=== PATIENT | male | born 1970 | race Caucasian/White ===

== ENCOUNTER → 2018-03-12 12:55 | Outpatient (CLI) | payer OTHER, SELFPAY ==
--- NOTE | 2018-03-12 12:58 | DI.RAD.S_ITS ---
PROCEDURE: XR ANKLE RT MIN 3V INDICATIONS: Right foot pain TECHNIQUE: 3 views of the ankle were acquired. COMPARISON: None. FINDINGS: Bones: No fractures or dislocations. Ankle mortise is normally aligned. No suspicious bony lesions. Calcaneal enthesophytes. Soft tissues: No tibiotalar joint effusion. Achilles tendon appears normal. IMPRESSION: Posterior plantar calcaneal enthesophytes. Dictated by: Keyon Terry [facility] Interpreted: Shanelle Pryor MD on 03/12/2018 at 13:13 Approved by: Shanelle Pryor M.D. on 03/12/2018 at 16:30
--- NOTE | 2018-03-12 12:58 | DI.RAD.S_ITS ---
PROCEDURE: XR FOOT RT MIN 3V INDICATIONS: Right foot pain TECHNIQUE: 3 views of the foot were acquired. COMPARISON: [facility], CR, XR ANKLE RT MIN 3V, 03/12/2018, 12:37. FINDINGS: Bones: No fractures or dislocations. No suspicious bony lesions. Calcaneal enthesophytes. Soft tissues: No tibiotalar joint effusion. Achilles tendon appears normal. IMPRESSION: Plantar and posterior calcaneal enthesophytes. Dictated by: Keyon Terry [facility] Interpreted: Shanelle Pryor MD on 03/12/2018 at 13:14 Approved by: Shanelle Pryor M.D. on 03/12/2018 at 16:27
== END ==
PROVIDERS: Visit Provider Family Medicine
DX: M79.671 Pain in right foot (principal)
CPT/HCPCS: 73610; 73630

== ENCOUNTER 2018-03-13 16:11 | Emergency (ER) | payer OTHER, SELFPAY ==
[2018-03-13 16:15] VITALS: BP 164/91; PULSE 88; RESP 16; TEMP 36.2; O2SAT 100; BMI 42.3
--- NOTE | 2018-03-13 16:51 | ED.LOWEXIN ---
HPI - Extremity Injury (Lower) General Chief Complaint: Extremity Injury, Lower Stated Complaint: SWELLING AND PAIN Time Seen by Provider: 03/13/18 16:18 Source: patient Mode of arrival: ambulatory Limitations: no limitations History of Present Illness HPI Narrative: Otherwise healthy 47-year-old male here for evaluation of right ankle pain. Patient states on of this week he got into his truck drove to work and when he got out he started having pain in the back of his right ankle. He states that since then the pain has moved to the front. No specific trauma. He states that he has pain with standing. Took a Motrin this morning with only minimal help. No swelling. No redness. No fevers. No prior injuries. Saw his primary doctor yesterday and obtained foot and ankle x-rays and was told that there was no fracture. Did use a walking boot with some improvement because of the compression. Related Data Home Medications Medication Instructions Recorded Confirmed aspirin 81 mg tablet,delayed 81 mg PO DAILY 02/02/18 03/12/18 release cholecalciferol (vitamin D3) 2,000 2,000 unit PO DAILY 02/02/18 03/12/18 unit capsule Previous Rx's Medication Instructions Recorded fenofibrate 1 tab PO QDAY #90 tab 11/13/17 hydrochlorothiazide 1 tab PO QDAY #90 tab 11/13/17 lisinopril 1 tab PO QDAY #90 tab 11/13/17 omeprazole 1 cap PO QDAY #90 cap 11/13/17 hydrocodone-acetaminophen [[place]] 1 tab PO Q4-6H PRN #7 tab 03/13/18 Allergies Allergy/AdvReac Type Severity Reaction Status Date / Time No Known Drug Allergies Allergy Verified 03/13/18 16:38 Review of Systems Constitutional Denies fatigue, Denies fever(s) and Denies headache(s) ENT Ears, Nose, Mouth, and Throat: Denies headache(s) Musculoskeletal Comments: Right ankle pain with walking Integumentary/Breasts Comments: No swelling redness right ankle Neurologic Denies headache(s) Comments: No numbness or tingling right lower extremity Endocrine Denies fatigue Hematologic/Lymphatic Denies easy bleeding and Denies easy bruising PFSH Family History Brother Age: 49 Skin cancer Mother Hypertension Social History Smoking Status: Former smoker Exam Initial Vital Signs Initial Vital Signs: Vital Signs Temperature 97.1 F L 03/13/18 16:15 Pulse Rate 88 03/13/18 16:15 Respiratory Rate 16 03/13/18 16:15 Blood Pressure 164/91 H 03/13/18 16:15 Pulse Oximetry 100 03/13/18 16:15 HENMT Head: normal to inspection, normocephalic and atraumatic Cardio Pulses: dorsalis pedis present on the right Skin Lesions: no lesions Rashes: no rashes Wounds: no wounds Neuro Other: Sensation intact to light touch right lower extremity Extrem Other: No tenderness to palpation along the Achilles No tenderness to palpation on medial lateral malleolus Patient is tender to palpation over the anterior tibia on the lateral aspect over the ATFL. No tenderness to palpation over the tibialis anterior tendon No tenderness palpation on the plantar aspect of the foot No tenderness palpation along the base of the 5th metatarsal. Course Vital Signs - 8 hr 03/13/18 16:15 Temperature 97.1 F L Pulse Rate 88 Respiratory Rate 16 Blood Pressure 164/91 H Pulse Oximetry 100 MDM - Extremity Injury (Lower) MDM Narrative Medical decision making narrative: I did review the patient's ankle ft and ankle x-rays from yesterday and reviewed the results in the were no fractures. There is no signs of infections. I do have a high suspicion that he has been somewhat disrupted the ligaments on the anterior portion of his talus tibial joint. Patient does have a walking boot at home. He does have a scooter and he also has crutches that he can use. We did discuss care. Did discuss follow-up. His primary doctor has put in a consult to see ft and ankle already. He was given return precautions. He expressed understanding and agreement with plan Discharge Plan Departure Patient Disposition: Home, Self-Care Clinical Impression: Pain in right ankle Instructions: How To Perform RICE (Rest, Ice, Compress, Elevate) Activity Restrictions/Additional Instructions: Recommend that you take the medication like we discussed. Make sure you follow through with the consult to the orthopedic group that was placed by the provider yesterday. Return to the emergency department for any new or worsening symptoms Prescriptions: New hydrocodone-acetaminophen [[place]] 5-325 mg tablet 1 tab PO Q4-6H PRN (Reason: pain) Qty: 7 RF: 0 No Action cholecalciferol (vitamin D3) 2,000 unit capsule 2,000 unit PO DAILY RF: 0 aspirin [Adult Low Dose Aspirin] 81 mg tablet,delayed release (DR/EC) 81 mg PO DAILY RF: 0 lisinopril 20 MG tablet 1 tab PO QDAY Qty: 90 RF: 3 omeprazole 20 MG capsule,delayed release(DR/EC) 1 cap PO QDAY Qty: 90 RF: 3 hydrochlorothiazide 25 MG tablet 1 tab PO QDAY Qty: 90 RF: 3 fenofibrate 54 MG tablet 1 tab PO QDAY Qty: 90 RF: 3
[2018-03-13 17:09] VITALS: BP 158/86; PULSE 86; RESP 18; O2SAT 96
== END 2018-03-13 17:11 | disposition home or self-care (01) ==
PROVIDERS: Emergency Provider Emergency Medicine
DX: M25.571 Pain in right ankle and joints of right foot (principal)
CPT/HCPCS: 99282

== ENCOUNTER → 2018-04-17 08:19 | Outpatient (CLI) | payer OTHER, SELFPAY ==
[2018-04-17 09:11] LABS: Add Manual Diff / Slide Review NO; Basophils Percent Auto 0.9 % (0-2); Eosinophils Percent Auto 3.5 % (2-4); Hemoglobin 16.2 g/dL (13.5-17.5); Mean Corpuscular HGB Conc 34.4 % (30-36); Mean Corpuscular Hemoglobin 30.5 PG (26-34); Mean Corpuscular Volume 88.5 fL (80-100); Monocytes Percent Auto 7.7 % (3-14); Neutrophils Absolute Auto 4500 /uL (3000-5900); Neutrophils Percent Auto 62.9 % (50-75); Platelet Count 161 X10^3/uL (150-400); Red Blood Cell Count 5.31 X10^6/uL (4.5-5.9); Red Cell Distribution Width 14.1 % (11.6-14.8); White Blood Cell Count 7.1 X10^3/uL (4.5-11.0)
[2018-04-17 09:27] LABS: Alanine Aminotransferase 59 IU/L (21-72); Albumin 4.3 g/dL (3.5-5.0); Albumin Globulin Ratio 1.8 (1.0-2.8); Alkaline Phosphatase 43 U/L (38-126); Aspartate Aminotransferase 39 IU/L (17-59); BUN Creatinine Ratio 17.8 (6-22); Bilirubin Total 0.7 mg/dL (0.2-1.3); Blood Urea Nitrogen 16 mg/dL (9-20); Calcium 9.3 mg/dL (8.4-10.2); Carbon Dioxide 32 mmol/L (22-32); Chloride 96 mmol/L (98-107); Cholesterol 194 mg/dL (140-199); Estimated Glomerular Filt Rate > 60.0 mL/min (>60); Globulin 2.4 g/dL (1.7-4.1); Glucose 113 mg/dL (70-100); HDL Cholesterol 33 mg/dL (40-60); HEMOLYSIS < 15 (0-50); Potassium 4.6 mmol/L (3.4-5.1); Sodium 137 mmol/L (137-145); Total Protein 6.7 g/dL (6.3-8.2); Triglycerides 431 mg/dL (35-150)
[2018-04-21 13:13] LABS: Testosterone Free 73.5 pg/mL (35.0-155.0); Testosterone Total 365 ng/dL (250-1100)
== END ==
PROVIDERS: PCP Family Medicine; Visit Provider Family Medicine
DX: I10 Essential (primary) hypertension (principal); E78.1 Pure hyperglyceridemia; E29.1 Testicular hypofunction; E78.00 Pure hypercholesterolemia, unspecified
CPT/HCPCS: 36415; 80053; 80061; 84402; 84403; 85025

== ENCOUNTER → 2018-09-17 16:29 | Outpatient (CLI) | payer OTHER, SELFPAY | PROVIDERS: Visit Provider Family Medicine | DX: E29.1 Testicular hypofunction (principal) | CPT/HCPCS: 36415; 84403 ==

== ENCOUNTER 2019-02-27 11:42 | Emergency (ER) | payer OTHER, SELFPAY ==
[2019-02-27 11:49] VITALS: BP 165/94; PULSE 90; RESP 18; TEMP 36.4; O2SAT 99
--- NOTE | 2019-02-27 12:47 | ED.LOWEXIN ---
HPI - Extremity Injury (Lower) <Antoinette Jensen PA-C - Last Filed: 02/27/19 20:36> General Chief Complaint: Extremity Injury, Lower Stated Complaint: Thinks left hamstring is torn Time Seen by Provider: 02/27/19 12:06 Source: patient Mode of arrival: ambulatory Limitations: no limitations History of Present Illness HPI Narrative: This 48-year-old male comes to ED with concern for torn leg muscle. He states that he was coming down stairs last night when he stepped on a dog toy and pitched forward, rolling his foot and ankle under. He states that he fell forward onto his arms and legs but did not hurt anything with the fall. He states that since then, he has had constant pain in his left anterior thigh, worse with bearing weight. He states this was more severe last night, a little bit better this morning. He states he is walking with small steps, is able to bear weight but painful. He denies any pain in the hip or knee or any other injury. States he felt a tearing sensation when he pitched forward and that is what caused injury. He has been taking some ibuprofen at home Related Data Home Medications Medication Instructions Recorded Confirmed aspirin 81 mg tablet,delayed 81 mg PO DAILY 02/02/18 09/23/18 release cholecalciferol (vitamin D3) 2,000 2,000 unit PO DAILY 02/02/18 09/23/18 unit capsule Previous Rx's Medication Instructions Recorded fenofibrate 1 tab PO QDAY #90 tab 11/13/17 hydrochlorothiazide 1 tab PO QDAY #90 tab 11/13/17 lisinopril 1 tab PO QDAY #90 tab 11/13/17 omeprazole 1 cap PO QDAY #90 cap 11/13/17 hydrocodone-acetaminophen [[place]] 1 tab PO Q4-6H PRN #7 tab 03/13/18 atorvastatin 10 mg tablet 10 mg PO DAILY #90 tab 06/04/18 testosterone cypionate 100 mg/mL 100 mg IM Q2W #1 ml 06/14/18 intramuscular oil oxycodone-acetaminophen 1 tab PO .q4hs PRN #5 tab 02/27/19 Allergies Allergy/AdvReac Type Severity Reaction Status Date / Time No Known Drug Allergies Allergy Verified 02/27/19 11:49 Review of Systems <Antoinette Jensen PA-C - Last Filed: 02/27/19 20:36> Review of Systems ROS Unobtainable: All systems reviewed & are unremarkable except as noted in HPI and below PFSH <Antoinette Jensen PA-C - Last Filed: 02/27/19 20:36> Medical History Excessive daytime sleepiness (Inactive) Obstructive sleep apnea of adult (Chronic) Nocturnal hypoxemia (Chronic) Primary insomnia (Inactive) Snoring (Inactive) Hypertension (Chronic) Morbid obesity due to excess calories (Chronic) Family History Brother Age: 50 Skin cancer Obstructive sleep apnea Mother Hypertension Sister Obstructive sleep apnea Social History marital status: household members: spouse housing: house 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 LUNGS: Clear to auscultation bilaterally. HEART: Rate and rhythm regular without murmur, normal S1 and S2, no S3 or S4. MUSCULOSKELETAL: No point tenderness over any of the left lower extremity joints from hip through toes. Tender over the left mid quadriceps throughout, no tenderness over the very lateral or medial insertions. There appears to be mild effusion over the proximal mid quadriceps. Strength appears to be intact against resistance, but is tender with resisted flexion. Unable to fully test passive range of motion of the hip and knee secondary to side tenderness. NEUROVASCULAR: Left foot is warm and pink with intact pulses, sensation grossly intact Initial Vital Signs Initial Vital Signs: Vital Signs Temperature 97.5 F L 02/27/19 11:49 Pulse Rate 90 06/09/19 11:49 Respiratory Rate 18 02/27/19 11:49 Blood Pressure 165/94 H 02/27/19 11:49 Pulse Oximetry 99 02/27/19 11:49 <Celso Abarca DO - Last Filed: 03/01/19 08:14> Initial Vital Signs Initial Vital Signs: Vital Signs Temperature 97.5 F L 02/27/19 11:49 Pulse Rate 90 02/27/19 11:49 Respiratory Rate 18 02/27/19 11:49 Blood Pressure 165/94 H 02/27/19 11:49 Pulse Oximetry 99 02/27/19 11:49 Course <Antoinette Jensen PA-C - Last Filed: 02/27/19 20:36> Vital Signs - 8 hr 02/27/19 13:31 Pulse Rate 82 Respiratory Rate 18 Blood Pressure [Left Wrist] 155/93 H Pulse Oximetry 96 <Celso Abarca DO - Last Filed: 03/01/19 08:14> Vital Signs - 8 hr 02/27/19 13:31 Pulse Rate 82 Respiratory Rate 18 Blood Pressure [Left Wrist] 155/93 H Pulse Oximetry 96 Discharge Plan Departure Patient Disposition: Home Clinical Impression: Strain of left quadriceps muscle Qualifiers: Encounter type: initial encounter Qualified Code(s): S76.112A - Strain of left quadriceps muscle, fascia and tendon, initial encounter Discharge Date/Time: 02/27/19 13:33 Interventions: ED Discharge Assessment Last Done: 02/27/19 13:33 Instructions: DI for Quadriceps Strain Activity Restrictions/Additional Instructions: Based on your exam today, I think you have partially torn muscle and attachments in your quadriceps (the big muscle in the front of your thigh). Since it is feeling a little bit better today, please try the compression wrap and crutches were needed (avoid excess stress on the muscle, but gentle walking is okay as you tolerate). Continue ibuprofen. At night, you can take an oxycodone acetaminophen as needed to help with comfort and sleep (remember this can make you sleepy and not to take during the day or drive). Please see your PCP in the next few days for recheck, as depending upon your progress you may need further testing or a referral for imaging studies or physical therapy. You should return as we talked about you have acutely worsening changes or new symptoms such as color change or numbness in the leg or foot. Prescriptions: New oxycodone-acetaminophen 5-325 mg tablet 1 tab PO .q4hs PRN (Reason: acute leg pain/injury) Qty: 5 RF: 0 No Action cholecalciferol (vitamin D3) 2,000 unit capsule 2,000 unit PO DAILY RF: 0 aspirin [Adult Low Dose Aspirin] 81 mg tablet,delayed release (DR/EC) 81 mg PO DAILY RF: 0 lisinopril 20 MG tablet 1 tab PO QDAY Qty: 90 RF: 3 omeprazole 20 MG capsule,delayed release(DR/EC) 1 cap PO QDAY Qty: 90 RF: 3 hydrochlorothiazide 25 MG tablet 1 tab PO QDAY Qty: 90 RF: 3 fenofibrate 54 MG tablet 1 tab PO QDAY Qty: 90 RF: 3 atorvastatin 10 mg tablet 10 mg PO DAILY Qty: 90 RF: 3 testosterone cypionate 100 mg/mL oil 100 mg IM Q2W Qty: 1 RF: 1 hydrocodone-acetaminophen [[place]] 5-325 mg tablet 1 tab PO Q4-6H PRN (Reason: pain) Qty: 7 RF: 0 Referrals: Amrit Chao MD [Primary Care Provider] - <Celso Abarca DO - Last Filed: 03/01/19 08:14> Cosign ED Attending Vidyaature Attestation: I was immediately available in the department for consultation. Documentation has been reviewed. I agree with assessment and plan.
[2019-02-27 13:31] VITALS: BP 155/93; PULSE 82; RESP 18; O2SAT 96
== END 2019-02-27 13:33 | disposition home or self-care (01) ==
PROVIDERS: Emergency Provider Internal Medicine; PCP Family Medicine
DX: S76.112A Strain of left quadriceps muscle, fascia and tendon, initial encounter (principal); W19.XXXA Unspecified fall, initial encounter
CPT/HCPCS: 99282; 99283

== ENCOUNTER → 2020-03-06 08:37 | Outpatient (CLI) | payer OTHER, SELFPAY ==
[2020-03-07 14:20] LABS: COVID19 Sendout Not Detected (Not Detect)
== END ==
PROVIDERS: PCP Family Medicine; Visit Provider Physician Assistant
DX: Z01.812 Encounter for preprocedural laboratory examination (principal)
CPT/HCPCS: 87635

== ENCOUNTER 2020-03-09 11:52 | Day surgery (SDC) | payer OTHER, SELFPAY ==
--- NOTE | 2020-03-09 07:06 | P.HP_ITS ---
History of Present Illness History of Present Illness Date Patient Seen: 03/09/20 Time Patient Seen: 12:30 Chief complaint: [id number] Narrative: 49 Years Old Male seen today for consideration of a screening colonoscopy. He has never had a colonoscopy. There have been no lower GI symptoms suggesting disease such as change in bowel habits, bleeding, abdominal pain or anemia. History of colon cancer in maternal uncle. Overall health issues have been stable, including no major cardiac events for at least 6 weeks. Past Medical History: Childhood chicken pox Diabetes mellitus type II HYPERLIPIDEMIA, MIXED ESSENTIAL HYPERTENSION OBESITY GERD HYPOGONADISM, MALE Sebacceous cyst-infected Axillary mass SKIN TAG VARICOSE VEIN THROMBOPHLEBITIS, SUPERFICIAL, LOWER EXT. VITAMIN D DEFICIENCY ALLERGIC RHINITIS, SEASONAL Past Surgical History: [place] teeth removal Family History: Arrythmia: mother Hypertension: mother GERD: mother Diabetes: mother Colon cancer: m. uncle 55 Lung and Brain cancer: m. 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 Children: [place] (plays football) adopting 2 foster children: 12 and 13 years old enjoys [employer] Patient History Medical History (Updated 03/14/19 @ 00:00 by ) Excessive daytime sleepiness (Inactive) Hypertension (Chronic) Morbid obesity due to excess calories (Chronic) Nocturnal hypoxemia (Chronic) Obstructive sleep apnea of adult (Chronic) Primary insomnia (Inactive) Snoring (Inactive) Family & Social History Family History Brother Age: 51 Skin cancer Obstructive sleep apnea Mother Hypertension Sister Obstructive sleep apnea Social History: household members spouse other cooking [employer] Tobacco & Substance use: Smoking Status Former smoker alcohol intake frequency a few times a week Substance Use Type does not use Meds Home Medications and Allergies Home Medications Medication Instructions Recorded Confirmed Type fenofibrate 1 tab PO QDAY #90 tab 11/13/17 03/23/19 Rx hydrochlorothiazide 1 tab PO QDAY #90 tab 11/13/17 03/23/19 Rx lisinopril 1 tab PO QDAY #90 tab 11/13/17 03/23/19 Rx omeprazole 1 cap PO QDAY #90 cap 11/13/17 03/23/19 Rx aspirin 81 mg tablet,delayed 81 mg PO DAILY 02/02/18 03/23/19 History release cholecalciferol (vitamin D3) 50 2,000 unit PO DAILY 02/02/18 03/23/19 History mcg (2,000 unit) capsule hydrocodone-acetaminophen [[place]] 1 tab PO Q4-6H PRN #7 tab 03/13/18 03/23/19 Rx atorvastatin 10 mg tablet 10 mg PO DAILY #90 tab 06/04/18 03/23/19 Rx testosterone cypionate 100 mg/mL 100 mg IM Q2W #1 ml 06/14/18 03/23/19 Rx intramuscular oil oxycodone-acetaminophen 1 tab PO .q4hs PRN #5 tab 02/27/19 03/23/19 Rx Respironics Dreamstation CPAP #1 ea 03/23/19 03/23/19 History Allergies Allergy/AdvReac Type Severity Reaction Status Date / Time No Known Drug Allergies Allergy Verified 03/06/20 08:36 Review of Systems Review of Systems ROS: Yes All systems reviewed with the patient and are negative except as otherwise documented Exam Narrative Exam Narrative: GENERAL: Alert and oriented, appearing stated age and in no acute distress. HEENT: Head normocephalic/atraumatic. Pupils equal, round, and reactive to light and accomodation. Extraocular muscles intact. Tympanic membranes clear. Nasal mucosa moist, septum midline. Oral mucosa moist, no lesions. Neck soft and supple, no lymphadenopathy. LUNGS: Clear to ausculation bilaterally, no wheezes, rhonchi or rales. CV: Normal S1 and S2 with regular rate and rhythm, no audible murmurs, rubs or gallops. ABDOMEN: Soft, non-tender, non-distended, no organomegaly. Positive bowel sounds. EXTREMITIES: No clubbing, cyanosis, or edema. NEURO: Cranial nerves II through XII grossly intact, no focal deficits. PSYCH: Alert and oriented x 3. SKIN: No concerning lesions. Assessment & Plan Assessment & Plan narrative: 1. Family history of colon cancer, maternal uncle 2: Screening for colon cancer Plan: Colonoscopy The nature and character of the procedure as well as anticipated results were discussed. The possibility of not completing the procedure was also discussed. Possible complications including aspiration pneumonia, bleeding, perforation and reaction to medications either for sedation or preparation and missed lesions were discussed. Questions were answered and proceeding to the colonoscopy was elected. Informed consent signed.
--- NOTE | 2020-03-09 07:09 | PM.OP.ENDO ---
Operative Date/Time/Diagnoses Date of procedure: 03/09/20 Time of procedure: 13:00 Pre-op diagnosis: 1. Family history of colon cancer, maternal uncle, age 55 2. Screening for colon cancer Post-op diagnosis: other (Normal colonoscopy) Procedure & Clinicians Study performed: 1. Colonoscopy Same procedure as scheduled: Yes Indications: 1. Family history of colon cancer, maternal uncle, age 55 2. Screening for colon cancer Surgeon: Tita Vargas Procedure Notes SCOAP/Timeout: 13:01 Procedure in detail: ENDOSCOPIST: Tita Vargas MD Sedation RN: Margie Marie RN Sedation start time: 13:01 Sedation end time: 13:21 PROCEDURE: Colonoscopy INDICATIONS: 1. Family history of colon cancer, maternal uncle, age 55 2. Screening for colon cancer MEDICATION: Levsin 0.125 mg sublingual, incremental doses of Versed and fentanyl until appropriate level sedation achieved. ASA CLASS: 3 CECAL WITHDRAWAL TIME: 13 minutes COMPLICATIONS: None. EXTENT OF PROCEDURE: Cecum. QUALITY OF PREP: Good with portions of liquid stool. PROCEDURE: Prior to insertion of the colonoscope, a digital rectal examination was accomplished with circumferential palpation of the distal rectal mucosa without significant findings being noted. The high-definition colonoscope was passed into the rectum in the usual fashion and advanced over to the cecum without difficulty. The ileocecal valve, appendiceal stoma, and medial wall all could be inspected and no abnormalities were seen. ASCENDING COLON: As the colonoscope was withdrawn, care was taken to expose and inspect the haustral folds and one diverticulum was noted. HEPATIC FLEXURE: Normal no polyps, diverticula or other abnormalities. TRANSVERSE COLON: Normal no polyps, diverticula or other abnormalities. DESCENDING COLON: Normal no polyps, diverticula or other abnormalities. SIGMOID COLON: Normal no polyps, diverticula or other abnormalities. RECTUM: Normal. J maneuver was produced. There was no significant perianal disease. The J maneuver was broken. The remainder of the rectum was inspected and there was no external hemorrhoid disease. The scope was withdrawn. IMPRESSION: 1. Normal colonoscopy 2. Ascending diverticula x1 PLAN: 1. Repeat colonoscopy in 10 years. The possibility of a missed lesion including a malignancy has been discussed with the patient previously. Potential alarm symptoms have been discussed and should be reported immediately. Specimen(s): none sent Complications: none Post-procedure Recommendations: Colonscopy in 10 years Follow up: as needed Disposition: PACU
[2020-03-09] MEDS: LACTATED RINGERS 1,000 ML 200 ML IV (12:20)
[2020-03-09 12:32] VITALS: BP 145/83; PULSE 84; RESP 16; TEMP 36.4; O2SAT 97; BMI 44.9
[2020-03-09] MEDS: fentaNYL 250 MCG/5 ML INJ IV (13:05)
[2020-03-09] MEDS: MIDAZOLAM 5 MG/5 ML VIAL IV (13:07)
[2020-03-09 13:26] VITALS: BP 139/81; PULSE 86; RESP 18; O2SAT 95
[2020-03-09 13:31] VITALS: BP 141/76; PULSE 82; RESP 16; TEMP 36.5; O2SAT 96
[2020-03-09 13:36] VITALS: BP 150/90; PULSE 94; RESP 23; O2SAT 95
--- NOTE | 2020-03-09 14:13 | SUR.PHASEII ---
1400 Discharged patient home in stable condition with . All instructions given to and patient. Patient denies pain, sob, nausea, or abdominal pain. VSS.
== END 2020-03-09 14:00 | disposition home or self-care (01) ==
PROVIDERS: PCP Student in an Organized Health Care Education/Training Program; Referring Provider Student in an Organized Health Care Education/Training Program; Visit Provider Student in an Organized Health Care Education/Training Program
PROC: 0DJD8ZZ Inspection of Lower Intestinal Tract, Via Natural or Artificial Opening Endoscopic (ICD-10-PCS; CPT 45378; principal; 2020-03-09 13:00)
DX: Z12.11 Encounter for screening for malignant neoplasm of colon (principal); E11.9 Type 2 diabetes mellitus without complications; E78.5 Hyperlipidemia, unspecified; I10 Essential (primary) hypertension; E66.9 Obesity, unspecified; K21.9 Gastro-esophageal reflux disease without esophagitis; K57.30 Diverticulosis of large intestine without perforation or abscess without bleeding
CPT/HCPCS: 45378; J2250; J3010

== ENCOUNTER → 2021-02-22 11:58 | Outpatient (CLI) | payer OTHER, SELFPAY ==
--- NOTE | 2021-02-22 | DI.MG.S_ITS ---
MALE BILATERAL DIGITAL DIAGNOSTIC MAMMOGRAM 3D/2D: 02/22/2021 CLINICAL: Left breast pain. No prior exams were available for comparison. There is moderate left-sided gynecomastia in the retroareolar region corresponding to the palpable abnormality. There is also mild right-sided gynecomastia. No suspicious mass is identified. No significant masses, calcifications, or other findings are seen in either breast. IMPRESSION: BENIGN Asymmetric left greater than right gynecomastia is seen that corresponds to the patient's reported palpable anormality. Recommend clinical correlation and workup for causes of gynecomastia. There is no mammographic evidence of malignancy. This exam was interpreted at Station ID: [id number]. NOTE: For mammograms, a report in lay terms will be sent to the patient. Approximately 15% of breast malignancies will not be visualized mammographically. In the management of a palpable breast mass, a negative mammogram must not discourage biopsy of a clinically suspicious lesion. Electronically Signed By: Saad serrano/chinyere:02/22/2021 12:39:03 letter sent: Clinical Evaluation ACR BI-RADS Category 2: Benign Finding(s) [id number]
== END ==
PROVIDERS: PCP Student in an Organized Health Care Education/Training Program; Referring Provider Student in an Organized Health Care Education/Training Program; Visit Provider Student in an Organized Health Care Education/Training Program
DX: N63.0 Unspecified lump in unspecified breast (principal); N64.4 Mastodynia
CPT/HCPCS: 77066; G0279

== ENCOUNTER → 2021-02-27 11:58 | Outpatient (ROUT) | payer OTHER, SELFPAY ==
[2021-02-27 12:20] LABS: D Dimer < 200 ng/mL (<230)
== END ==
PROVIDERS: PCP Student in an Organized Health Care Education/Training Program; Visit Provider Student in an Organized Health Care Education/Training Program
DX: M79.604 Pain in right leg (principal)
CPT/HCPCS: 85379